=== PATIENT | male | born 1965 | race Caucasian/White ===

== ENCOUNTER 2017-04-09 20:59 | Inpatient (IN) | payer MEDICAID ==
[~2017-04-09] VITALS: Ht 188 cm; Wt 101.8 kg
[~2017-04-09 20:59] MED LIST: CYCL-1 PO; GABA-532 PO; HYDR-565 PO; IBUP200C74 PO; LISI10TA4 PO; NAPR-1154 PO; OMEP40CA37 PO
[2017-04-09 22:15] LABS: BASOPHILS # (AUTO) 0.1 X10'3 (0-0.2); BASOPHILS % (AUTO) 0.2 % (0-1); EOSINOPHILS % (AUTO) 0.2 % (0-6); HEMATOCRIT 37.8 % (42.0-52.0); HEMOGLOBIN 12.8 g/dl (14.0-17.9); LYMPHOCYTES # (AUTO) 0.6 X10'3 (1.1-4.8); LYMPHOCYTES % (AUTO) 2.6 % (21-51); MEAN CORPUSCULAR HGB CONC 33.9 % (33.0-36.5); MEAN CORPUSCULAR VOLUME 91.5 FL (78-98); MEAN PLATELET VOLUME 7.1 FL (7.4-10.4); MONOCYTES # (AUTO) 1.1 X10'3 (0-0.9); MONOCYTES % (AUTO) 4.7 % (2-12); NEUTROPHILS # (AUTO) 22.1 X10'3 (1.8-7.7); NEUTROPHILS % (AUTO) 92.3 % (42-75); PLATELET COUNT 420 X10'3 (140-440); RED BLOOD COUNT 4.14 X10'6 (4.70-6.10); RED CELL DISTRIBUTION WIDTH 13.6 % (11.5-14.5); WHITE BLOOD COUNT 23.9 X10'3 (4.5-11.0)
[2017-04-09 22:28] LABS: ANION GAP 14 (8-16); BILIRUBIN,TOTAL 0.8 MG/DL (0.1-1.0); BLOOD UREA NITROGEN 47 MG/DL (7-18); BUN/CREATININE RATIO 12.3 (5.4-32.0); CALCIUM 8.6 MG/DL (8.5-10.1); CHLORIDE 95 MMOL/L (99-107); CREATININE 3.83 MG/DL (0.60-1.10); GLUCOSE 165 MG/DL (70-104); POTASSIUM 4.5 MMOL/L (3.5-5.1); SODIUM 134 MMOL/L (135-145); TOTAL CARBON DIOXIDE 25.3 MMOL/L (24-32); eGFR 17 ML/MIN
[2017-04-09 22:29] LABS: ALANINE AMINOTRANSFERASE 34 U/L (12-78); ALBUMIN 2.2 G/DL (3.4-5.0); ALBUMIN/GLOBULIN RATIO 0.4 (1.1-1.5); ALKALINE PHOSPHATASE 140 IU/L (46-116); ASPARTATE AMINO TRANSFERASE 26 U/L (10-37); TOTAL PROTEIN 7.9 G/DL (6.4-8.2)
[2017-04-09 22:47] LABS: PROTHROMBIN TIME 10.6 SECONDS (9.0-12.0)
[2017-04-09 23:15] LABS: PLATELET ESTIMATE NORMAL; TOTAL CELLS COUNTED 100
[2017-04-09 23:31] LABS: CLARITY,URINE TURBID (Clear); COLOR,URINE YELLOW (Yellow); GLUCOSE, URINE NEGATIVE (Neg); KETONES,URINE TRACE mg/dl (Neg); LEUKOCYTE ESTERASE ,URINE LARGE (Neg); OCCULT BLOOD,URINE LARGE (Neg); PH,URINE 5.5 (4.8-8.0); PROTEIN,URINE >=300 mg/dl (Neg)
[2017-04-09 23:32] LABS: UA COLLECTION TYPE CLN CATCH MIDSTREAM
[2017-04-09 23:35] LABS: NITRITES, URINE NEGATIVE (Neg)
[2017-04-09 23:50] LABS: BACTERIA,URINE 4+ /HPF (Neg); MUCUS STRANDS NONE SEEN /LPF (Neg); SQUAMOUS EPITHELIAL CELL,UR NONE SEEN /LPF (FEW); WBC,URINE TNTC /HPF (0-4)
[2017-04-10] VITALS (22 sets, daily range): BP systolic 84–163; BP diastolic 31–105
[2017-04-10] MEDS ORDERED: normal saline 1000ML IV soln IV ONE (01:10)
[2017-04-10] MEDS ORDERED: CefTRIAXone 2gm/D5W 50ml ADVTG 50 ML IV ONE (01:10)
[2017-04-10] MEDS ORDERED: potassium 10mEq/100ml NS w/LIDOcaine (10mg/bag) IV SCH (01:20)
[2017-04-10] MEDS ORDERED: metoclopramide 5 mg/ml inj IV ONE (01:20)
[2017-04-10] MEDS ORDERED: diphenhydrAMINE 50 mg/ml inj IV ONE (01:20)
[2017-04-10] MEDS ORDERED: normal saline 1000ML IV soln IVB ONE ×3 (01:20→04:25)
[2017-04-10] MEDS ORDERED: LORazepam 2 mg/ml vial IV ONE (01:20)
[2017-04-10 01:30] LABS: PARTIAL THROMBOPLASTIN TIME 37 SECONDS (22-32)
[2017-04-10 01:45] LABS: URINE AMPHETAMINE SCREEN POSITIVE (Neg); URINE BARBITUATE SCREEN NEGATIVE (Neg); URINE BENZODIAZEPINES SCREEN NEGATIVE (Neg); URINE CANNABINOID SCREEN NEGATIVE (Neg); URINE COCAINE SCREEN NEGATIVE (Neg); URINE METHADONE SCREEN NEGATIVE (Neg); URINE OPIATE SCREEN POSITIVE (Neg); URINE PHENCYCLIDINE SCREEN NEGATIVE (Neg)
[2017-04-10] MEDS ORDERED: mag hydrox/Alum hydrox/simeth 30ml oral suspension PO PRN (04:35)
[2017-04-10] MEDS ORDERED: acetaminophen 325mg tablet PO PRN (04:35)
[2017-04-10] MEDS ORDERED: ondansetron/PF 4mg/2ml inj IV PRN ×2 (04:35→05:20)
[2017-04-10] MEDS ORDERED: magnesium hydroxide 30ml (MOM) UD suspension PO PRN (04:35)
[2017-04-10] MEDS ORDERED: ringers solution, lacted 1,000 ML IV SCH (05:18)
[2017-04-10] MEDS ORDERED: morphine sulfate 8 MG/ML SYRINGE IV PRN ×2 (05:20)
[2017-04-10] MEDS ORDERED: enalaprilat dihydrate 2.5mg/2ml vial IV PRN (05:20)
[2017-04-10] MEDS ORDERED: hydrALAZINE 20mg/ml inj. IV PRN (05:20)
[2017-04-10] MEDS ORDERED: fentaNYL/PF 50MCG/1 ML 2ML syringe IV PRN ×2 (05:20)
[2017-04-10 05:23] LABS: MAGNESIUM 2.3 MG/DL (1.5-2.4); TROPONIN I < 0.04 NG/ML (0.0-0.05)
[2017-04-10] MEDS ORDERED: midazolam 2 mg/2 ml injection ONE ×2 (05:39→06:05)
[2017-04-10] MEDS ORDERED: fentaNYL/PF 50MCG/1 ML 2ML syringe ONE ×3 (05:39→06:08)
[2017-04-10] MEDS ORDERED: propofol inj 20 ML IV ONE (05:40)
[2017-04-10] MEDS ORDERED: LIDOcaine 2% (20mg/ml) 5ml vial ONE (05:40)
[2017-04-10] MEDS ORDERED: dexamethasone sod phosphate 4mg/ml inj. ONE (05:48)
[2017-04-10] MEDS ORDERED: sevoflurane 250ml liquid IH ONE (05:48)
[2017-04-10 07:18] LABS: CLARITY,URINE SLIGHTLY CLOUDY (Clear); GLUCOSE, URINE NEGATIVE (Neg); KETONES,URINE NEGATIVE (Neg); LEUKOCYTE ESTERASE ,URINE SMALL (Neg); NITRITES, URINE NEGATIVE (Neg); OCCULT BLOOD,URINE LARGE (Neg); PH,URINE 5.5 (4.8-8.0); PROTEIN,URINE TRACE mg/dl (Neg); UROBILINOGEN,URINE 0.2 E.U/dL (0.2-1.0)
[2017-04-10 07:19] LABS: UA COLLECTION TYPE FOLEY CATH
[2017-04-10 07:20] LABS: COLOR,URINE Pink (Yellow)
[2017-04-10 07:30] LABS: BACTERIA,URINE NONE SEEN /HPF (Neg); MUCUS STRANDS FEW /LPF (Neg); RBC,URINE TNTC /HPF (0-2); SQUAMOUS EPITHELIAL CELL,UR FEW /LPF (FEW)
[2017-04-10 07:31] LABS: TRANSITIONAL EPI CELLS,URINE FEW /HPF; WBC CLUMPS,URINE FEW /HPF (NEGATIVE)
[2017-04-10] MEDS: normal saline 1000ml 1,000 ML IV SCH ×2 (09:00→15:42)
[2017-04-10] MEDS: morphine sulfate 8 MG/ML SYRINGE IV PRN ×2 (10:39→15:46)
[2017-04-10] MEDS ORDERED: vancomycin/NS 1 GM ADD-VANTAGE 250 ML IV ONE (18:05)
[2017-04-10] MEDS ORDERED: CefTRIAXone 2gm/D5W 50ml ADVTG 50 ML IV SCH (21:00)
[2017-04-11] MEDS ORDERED: guaiFENesin/DM oral syrup 5 ML CUP PO PRN (00:55)
[2017-04-11] MEDS ORDERED: HYDROcodone/acetaminophen 5mg/325mg tablet PO PRN (00:55)
[2017-04-11] MEDS: HYDROcodone/acetaminophen 10/325mg tab PO PRN ×3 (01:07→11:12)
[2017-04-11] MEDS: normal saline 1000ml 1,000 ML IV SCH ×3 (01:11→19:30)
[2017-04-11 03:00] VITALS: BP 148/101
[2017-04-11 05:26] LABS: BASOPHILS % (AUTO) 0 % (0-1); EOSINOPHILS % (AUTO) 0 % (0-6); HEMATOCRIT 32.3 % (42.0-52.0); LYMPHOCYTES # (AUTO) 0.8 X10'3 (1.1-4.8); LYMPHOCYTES % (AUTO) 3.1 % (21-51); MEAN CORPUSCULAR VOLUME 91.1 FL (78-98); MEAN PLATELET VOLUME 7.9 FL (7.4-10.4); MONOCYTES % (AUTO) 4.2 % (2-12); NEUTROPHILS # (AUTO) 22.6 X10'3 (1.8-7.7); NEUTROPHILS % (AUTO) 92.7 % (42-75); PLATELET COUNT 372 X10'3 (140-440); RED BLOOD COUNT 3.54 X10'6 (4.70-6.10); WHITE BLOOD COUNT 24.4 X10'3 (4.5-11.0)
[2017-04-11 05:28] LABS: ALBUMIN 1.5 G/DL (3.4-5.0); ANION GAP 8 (8-16); BLOOD UREA NITROGEN 48 MG/DL (7-18); BUN/CREATININE RATIO 18.5 (5.4-32.0); CALCIUM 7.9 MG/DL (8.5-10.1); CHLORIDE 104 MMOL/L (99-107); GLUCOSE 141 MG/DL (70-104); POTASSIUM 4.2 MMOL/L (3.5-5.1); SODIUM 136 MMOL/L (135-145); TOTAL CARBON DIOXIDE 24.5 MMOL/L (24-32); eGFR 26 ML/MIN
[2017-04-11 06:00] VITALS: BP 144/94
[2017-04-11] MEDS ORDERED: vancomycin/NS 1 GM ADD-VANTAGE 250 ML IV PRN (07:10)
[2017-04-11 11:00] VITALS: BP 161/93
[2017-04-11] MEDS: nicotine 14mg patch - 24hr TD SCH (11:11)
[2017-04-11] MEDS ORDERED: CYCL-1 PO (13:33)
[2017-04-11] MEDS: morphine sulfate 8 MG/ML SYRINGE IV PRN ×3 (14:12→22:31)
[2017-04-11 16:30] VITALS: BP 169/118
[2017-04-11] MEDS: lactobacillus rhamnosus 10,000 MMU CELLS/CAPSULE PO SCH (17:53)
[2017-04-11 19:00] VITALS: BP 188/113
[2017-04-11] MEDS: hydrALAZINE 20mg/ml inj. IV PRN (19:14)
[2017-04-11] MEDS ORDERED: haloperidol lactate 5mg/ml inj IM STA (21:05)
[2017-04-11 23:00] VITALS: BP 193/115
[2017-04-12] VITALS (7 sets, daily range): BP systolic 131–193; BP diastolic 81–117
[2017-04-12] MEDS: hydrALAZINE 20mg/ml inj. IV PRN ×2 (01:36→17:16)
[2017-04-12] MEDS: morphine sulfate 8 MG/ML SYRINGE IV PRN ×6 (01:36→21:56)
[2017-04-12] MEDS: HYDROcodone/acetaminophen 10/325mg tab PO PRN ×4 (04:06→17:16)
[2017-04-12] MEDS: normal saline 1000ml 1,000 ML IV SCH ×2 (04:43→17:16)
[2017-04-12 05:23] LABS: BASOPHILS % (AUTO) 0 % (0-1); EOSINOPHILS # (AUTO) 0.1 X10'3 (0-0.9); EOSINOPHILS % (AUTO) 0.4 % (0-6); HEMATOCRIT 37.2 % (42.0-52.0); HEMOGLOBIN 12.5 g/dl (14.0-17.9); LYMPHOCYTES # (AUTO) 1.4 X10'3 (1.1-4.8); LYMPHOCYTES % (AUTO) 7.2 % (21-51); MEAN CORPUSCULAR HEMOGLOBIN 30.5 PG (27.0-31.0); MEAN CORPUSCULAR HGB CONC 33.7 % (33.0-36.5); MEAN CORPUSCULAR VOLUME 90.4 FL (78-98); MEAN PLATELET VOLUME 7.8 FL (7.4-10.4); MONOCYTES # (AUTO) 0.4 X10'3 (0-0.9); MONOCYTES % (AUTO) 2.1 % (2-12); NEUTROPHILS # (AUTO) 17.2 X10'3 (1.8-7.7); NEUTROPHILS % (AUTO) 90.3 % (42-75); PLATELET COUNT 429 X10'3 (140-440); RED BLOOD COUNT 4.12 X10'6 (4.70-6.10)
[2017-04-12 05:44] LABS: GLUCOSE 134 MG/DL (70-104); POTASSIUM 3.7 MMOL/L (3.5-5.1); SODIUM 134 MMOL/L (135-145)
[2017-04-12 05:45] LABS: ALBUMIN 1.8 G/DL (3.4-5.0); ANION GAP 12 (8-16); BLOOD UREA NITROGEN 45 MG/DL (7-18); BUN/CREATININE RATIO 20.2 (5.4-32.0); CALCIUM 8.5 MG/DL (8.5-10.1); CHLORIDE 99 MMOL/L (99-107); CREATININE 2.23 MG/DL (0.60-1.10); TOTAL CARBON DIOXIDE 22.7 MMOL/L (24-32); eGFR 31 ML/MIN
[2017-04-12 07:48] LABS: ANISOCYTOSIS 1+; PLATELET ESTIMATE NORMAL; TOTAL CELLS COUNTED 100
[2017-04-12] MEDS: lactobacillus rhamnosus 10,000 MMU CELLS/CAPSULE PO SCH ×2 (08:38→17:16)
[2017-04-12] MEDS: nicotine 14mg patch - 24hr TD SCH (08:39)
[2017-04-12] MEDS: ibuprofen 200mg tablet PO PRN (17:15)
[2017-04-13] MEDS: morphine sulfate 8 MG/ML SYRINGE IV PRN ×5 (01:03→21:54)
[2017-04-13] MEDS: HYDROcodone/acetaminophen 10/325mg tab PO PRN ×2 (01:04→20:12)
[2017-04-13] MEDS: normal saline 1000ml 1,000 ML IV SCH ×3 (01:07→22:35)
[2017-04-13 03:00] VITALS: BP 146/93
[2017-04-13] MEDS: ibuprofen 200mg tablet PO PRN (03:01)
[2017-04-13 05:49] LABS: BASOPHILS % (AUTO) 0 % (0-1); EOSINOPHILS # (AUTO) 0.3 X10'3 (0-0.9); EOSINOPHILS % (AUTO) 1.7 % (0-6); HEMATOCRIT 33.5 % (42.0-52.0); HEMOGLOBIN 11.4 g/dl (14.0-17.9); LYMPHOCYTES # (AUTO) 1.3 X10'3 (1.1-4.8); LYMPHOCYTES % (AUTO) 6.8 % (21-51); MEAN CORPUSCULAR HEMOGLOBIN 30.6 PG (27.0-31.0); MEAN PLATELET VOLUME 7.6 FL (7.4-10.4); MONOCYTES # (AUTO) 0.5 X10'3 (0-0.9); MONOCYTES % (AUTO) 2.6 % (2-12); NEUTROPHILS # (AUTO) 16.5 X10'3 (1.8-7.7); NEUTROPHILS % (AUTO) 88.9 % (42-75); PLATELET COUNT 388 X10'3 (140-440); RED BLOOD COUNT 3.72 X10'6 (4.70-6.10); RED CELL DISTRIBUTION WIDTH 14.3 % (11.5-14.5); WHITE BLOOD COUNT 18.6 X10'3 (4.5-11.0)
[2017-04-13 06:18] LABS: ALBUMIN 1.6 G/DL (3.4-5.0); ANION GAP 11 (8-16); BLOOD UREA NITROGEN 33 MG/DL (7-18); BUN/CREATININE RATIO 17.6 (5.4-32.0); CALCIUM 8.2 MG/DL (8.5-10.1); CHLORIDE 101 MMOL/L (99-107); CREATININE 1.88 MG/DL (0.60-1.10); GLUCOSE 121 MG/DL (70-104); POTASSIUM 3.9 MMOL/L (3.5-5.1); SODIUM 136 MMOL/L (135-145); TOTAL CARBON DIOXIDE 24.5 MMOL/L (24-32); eGFR 38 ML/MIN
[2017-04-13 07:55] LABS: PLATELET ESTIMATE NORMAL; POLYCHROMASIA 1+; TOTAL CELLS COUNTED 100
[2017-04-13 07:56] LABS: TOXIC GRANULATION 2+
[2017-04-13] MEDS: nicotine 14mg patch - 24hr TD SCH (08:00)
[2017-04-13 11:00] VITALS: BP 183/102
[2017-04-13] MEDS: lactobacillus rhamnosus 10,000 MMU CELLS/CAPSULE PO SCH ×2 (11:23→17:01)
[2017-04-13] MEDS: acetaminophen 325mg tablet PO PRN (15:42)
[2017-04-13 18:00] VITALS: BP 162/91
[2017-04-13 22:00] VITALS: BP 166/100
[2017-04-14 02:00] VITALS: BP 150/120
[2017-04-14] MEDS: morphine sulfate 8 MG/ML SYRINGE IV PRN ×6 (02:27→23:13)
[2017-04-14] MEDS: acetaminophen 325mg tablet PO PRN (02:28)
[2017-04-14 04:40] LABS: BASOPHILS % (AUTO) 0 % (0-1); EOSINOPHILS # (AUTO) 0.5 X10'3 (0-0.9); EOSINOPHILS % (AUTO) 1.9 % (0-6); HEMATOCRIT 34.5 % (42.0-52.0); HEMOGLOBIN 11.8 g/dl (14.0-17.9); LYMPHOCYTES # (AUTO) 0.9 X10'3 (1.1-4.8); LYMPHOCYTES % (AUTO) 3.5 % (21-51); MEAN CORPUSCULAR HEMOGLOBIN 30.7 PG (27.0-31.0); MEAN CORPUSCULAR HGB CONC 34.1 % (33.0-36.5); MEAN PLATELET VOLUME 7.2 FL (7.4-10.4); MONOCYTES # (AUTO) 0.9 X10'3 (0-0.9); MONOCYTES % (AUTO) 3.7 % (2-12); NEUTROPHILS % (AUTO) 90.9 % (42-75); PLATELET COUNT 435 X10'3 (140-440); RED BLOOD COUNT 3.83 X10'6 (4.70-6.10); RED CELL DISTRIBUTION WIDTH 14.4 % (11.5-14.5)
[2017-04-14 04:54] LABS: WHITE BLOOD COUNT 25.3 X10'3 (4.5-11.0)
[2017-04-14 04:57] LABS: ALBUMIN 1.6 G/DL (3.4-5.0); ANION GAP 9 (8-16); BLOOD UREA NITROGEN 24 MG/DL (7-18); BUN/CREATININE RATIO 13.8 (5.4-32.0); CALCIUM 8.7 MG/DL (8.5-10.1); CHLORIDE 98 MMOL/L (99-107); CREATININE 1.74 MG/DL (0.60-1.10); GLUCOSE 137 MG/DL (70-104); SODIUM 132 MMOL/L (135-145); TOTAL CARBON DIOXIDE 25.1 MMOL/L (24-32); eGFR 42 ML/MIN
[2017-04-14 07:03] VITALS: BP 152/92
[2017-04-14 07:14] LABS: BASOPHILS % (MANUAL) 1 % (0-1); LYMPHOCYTES % (MANUAL) 7 % (21-51); MONOCYTES % (MANUAL) 1 % (2-12); NEUTROPHILS % (MANUAL) 90 % (42-75); PLATELET ESTIMATE NORMAL; TOTAL CELLS COUNTED 100; TOXIC GRANULATION 2+
[2017-04-14] MEDS: lactobacillus rhamnosus 10,000 MMU CELLS/CAPSULE PO SCH ×2 (08:27→17:39)
[2017-04-14] MEDS: nicotine 14mg patch - 24hr TD SCH (08:28)
[2017-04-14] MEDS: normal saline 1000ml 1,000 ML IV SCH ×2 (08:35→17:39)
[2017-04-14] MEDS: metroNIDAZOLE-Flagyl 500mg/NS 100 ML IV SCH ×3 (11:15→23:13)
[2017-04-14] MEDS: diatr meglu/diatrizoate 30ml oral sol.-(3 dose) bottle PO SCH ×4 (11:20→17:39)
[2017-04-14 12:03] VITALS: BP 151/97
[2017-04-14] MEDS: CefTRIAXone 2gm/D5W 50ml ADVTG 50 ML IV SCH (12:18)
[2017-04-14 17:28] VITALS: BP 165/98
[2017-04-14 19:00] VITALS: BP 180/101
[2017-04-14] MEDS ORDERED: VANCOMYCIN LEVEL IV ONE (20:30)
[2017-04-14] MEDS: HYDROcodone/acetaminophen 10/325mg tab PO PRN (21:37)
[2017-04-14] MEDS: hydrALAZINE 20mg/ml inj. IV PRN (21:38)
[2017-04-14 23:00] VITALS: BP 167/94
[2017-04-15] VITALS (13 sets, daily range): BP systolic 115–180; BP diastolic 62–98
[2017-04-15] MEDS: morphine sulfate 8 MG/ML SYRINGE IV PRN ×3 (02:30→09:39)
[2017-04-15] MEDS: normal saline 1000ml 1,000 ML IV SCH ×2 (02:30→14:32)
[2017-04-15] MEDS: cloNIDine 0.1 mg tablet PO SCH ×3 (02:53→16:00)
[2017-04-15 05:24] LABS: BASOPHILS % (AUTO) 0.1 % (0-1); EOSINOPHILS # (AUTO) 0.5 X10'3 (0-0.9); EOSINOPHILS % (AUTO) 2.2 % (0-6); HEMATOCRIT 34.6 % (42.0-52.0); HEMOGLOBIN 12.1 g/dl (14.0-17.9); MEAN CORPUSCULAR HEMOGLOBIN 30.8 PG (27.0-31.0); MEAN CORPUSCULAR HGB CONC 34.8 % (33.0-36.5); MEAN CORPUSCULAR VOLUME 88.6 FL (78-98); MEAN PLATELET VOLUME 7.2 FL (7.4-10.4); MONOCYTES # (AUTO) 1.1 X10'3 (0-0.9); MONOCYTES % (AUTO) 4.3 % (2-12); NEUTROPHILS # (AUTO) 22.6 X10'3 (1.8-7.7); NEUTROPHILS % (AUTO) 89.4 % (42-75); PLATELET COUNT 528 X10'3 (140-440); RED BLOOD COUNT 3.91 X10'6 (4.70-6.10); RED CELL DISTRIBUTION WIDTH 14.7 % (11.5-14.5)
[2017-04-15 05:39] LABS: ALBUMIN 1.5 G/DL (3.4-5.0); ANION GAP 10 (8-16); BLOOD UREA NITROGEN 24 MG/DL (7-18); BUN/CREATININE RATIO 13.3 (5.4-32.0); CALCIUM 8.3 MG/DL (8.5-10.1); CHLORIDE 99 MMOL/L (99-107); GLUCOSE 140 MG/DL (70-104); POTASSIUM 4.2 MMOL/L (3.5-5.1); SODIUM 133 MMOL/L (135-145); TOTAL CARBON DIOXIDE 24.4 MMOL/L (24-32); eGFR 40 ML/MIN
[2017-04-15 05:45] LABS: WHITE BLOOD COUNT 25.2 X10'3 (4.5-11.0)
[2017-04-15 06:33] LABS: BANDS% (MANUAL) 6 % (0-10); EOSINOPHILS % (MANUAL) 1 % (0-6); MONOCYTES % (MANUAL) 1 % (2-12); MYELOCYTES % (MANUAL) 1 % (0-0); NEUTROPHILS % (MANUAL) 91 % (42-75); PLATELET ESTIMATE INCREASED; TOTAL CELLS COUNTED 100
[2017-04-15 06:34] LABS: TOXIC GRANULATION 2+
[2017-04-15] MEDS: lactobacillus rhamnosus 10,000 MMU CELLS/CAPSULE PO SCH ×2 (07:10→16:10)
[2017-04-15] MEDS: metroNIDAZOLE-Flagyl 500mg/NS 100 ML IV SCH (07:11)
[2017-04-15] MEDS: nicotine 14mg patch - 24hr TD SCH (07:11)
[2017-04-15] MEDS: HYDROcodone/acetaminophen 10/325mg tab PO PRN ×4 (07:11→22:14)
[2017-04-15] MEDS: CefTRIAXone 2gm/D5W 50ml ADVTG 50 ML IV SCH (07:11)
[2017-04-15] MEDS: linezolid 600mg tablet PO SCH ×2 (09:39→19:57)
[2017-04-15] MEDS ORDERED: MIDAZolam 5mg/ml 2ml vial IV ONE (15:25)
[2017-04-15] MEDS ORDERED: fentaNYL/PF 50MCG/1 ML 2ML syringe IV ONE (15:25)
[2017-04-15] MEDS: traMADol 50MG tablet PO PRN (19:58)
[2017-04-15] MEDS: hydrALAZINE 20mg/ml inj. IV PRN (22:14)
[2017-04-16] VITALS (7 sets, daily range): BP systolic 134–161; BP diastolic 72–88
[2017-04-16] MEDS: traMADol 50MG tablet PO PRN ×5 (00:03→21:57)
[2017-04-16] MEDS: cloNIDine 0.1 mg tablet PO SCH ×4 (00:03→23:48)
[2017-04-16] MEDS: normal saline 1000ml 1,000 ML IV SCH ×4 (00:35→23:54)
[2017-04-16] MEDS: HYDROcodone/acetaminophen 10/325mg tab PO PRN ×5 (02:44→23:49)
[2017-04-16] MEDS: linezolid 600mg tablet PO SCH ×2 (09:08→19:33)
[2017-04-16] MEDS: lactobacillus rhamnosus 10,000 MMU CELLS/CAPSULE PO SCH ×2 (09:08→17:36)
[2017-04-16] MEDS: nicotine 14mg patch - 24hr TD SCH (09:12)
[2017-04-16 11:09] LABS: BASOPHILS % (AUTO) 0.1 % (0-1); EOSINOPHILS # (AUTO) 0.3 X10'3 (0-0.9); EOSINOPHILS % (AUTO) 1.3 % (0-6); HEMATOCRIT 31.7 % (42.0-52.0); HEMOGLOBIN 10.7 g/dl (14.0-17.9); LYMPHOCYTES # (AUTO) 1.2 X10'3 (1.1-4.8); LYMPHOCYTES % (AUTO) 5.1 % (21-51); MEAN CORPUSCULAR HEMOGLOBIN 30.3 PG (27.0-31.0); MEAN CORPUSCULAR HGB CONC 33.7 % (33.0-36.5); MEAN CORPUSCULAR VOLUME 89.9 FL (78-98); MEAN PLATELET VOLUME 7.3 FL (7.4-10.4); MONOCYTES % (AUTO) 4.2 % (2-12); NEUTROPHILS # (AUTO) 21.3 X10'3 (1.8-7.7); NEUTROPHILS % (AUTO) 89.3 % (42-75); PLATELET COUNT 627 X10'3 (140-440); RED BLOOD COUNT 3.53 X10'6 (4.70-6.10); RED CELL DISTRIBUTION WIDTH 14.8 % (11.5-14.5); WHITE BLOOD COUNT 23.9 X10'3 (4.5-11.0)
[2017-04-16 11:21] LABS: ALBUMIN 1.4 G/DL (3.4-5.0); ANION GAP 8 (8-16); BLOOD UREA NITROGEN 25 MG/DL (7-18); BUN/CREATININE RATIO 15.2 (5.4-32.0); CALCIUM 8.1 MG/DL (8.5-10.1); CHLORIDE 100 MMOL/L (99-107); CREATININE 1.65 MG/DL (0.60-1.10); GLUCOSE 115 MG/DL (70-104); POTASSIUM 4.1 MMOL/L (3.5-5.1); SODIUM 134 MMOL/L (135-145); TOTAL CARBON DIOXIDE 26.2 MMOL/L (24-32); eGFR 44 ML/MIN
[2017-04-16 11:27] LABS: TOTAL CELLS COUNTED 100
[2017-04-16 11:28] LABS: PLATELET ESTIMATE INCREASED; TOXIC GRANULATION 2+
[2017-04-16] MEDS ORDERED: VANCOMYCIN LEVEL IV NR (20:30)
[2017-04-17] MEDS: traMADol 50MG tablet PO PRN ×4 (02:27→20:37)
[2017-04-17 03:00] VITALS: BP 146/79
[2017-04-17] MEDS: HYDROcodone/acetaminophen 10/325mg tab PO PRN ×4 (04:03→22:25)
[2017-04-17 06:00] VITALS: BP 134/80
[2017-04-17 06:19] LABS: VANCOMYCIN,TROUGH 17.4 UG/ML (6.0-14.0)
[2017-04-17 07:28] LABS: ALBUMIN 1.5 G/DL (3.4-5.0); ANION GAP 11 (8-16); BLOOD UREA NITROGEN 22 MG/DL (7-18); BUN/CREATININE RATIO 12.8 (5.4-32.0); CALCIUM 8.5 MG/DL (8.5-10.1); CHLORIDE 99 MMOL/L (99-107); CREATININE 1.72 MG/DL (0.60-1.10); GLUCOSE 124 MG/DL (70-104); SODIUM 133 MMOL/L (135-145); TOTAL CARBON DIOXIDE 23.5 MMOL/L (24-32); eGFR 42 ML/MIN
[2017-04-17] MEDS: linezolid 600mg tablet PO SCH ×2 (09:18→20:37)
[2017-04-17] MEDS: lactobacillus rhamnosus 10,000 MMU CELLS/CAPSULE PO SCH ×2 (09:19→17:56)
[2017-04-17] MEDS: cloNIDine 0.1 mg tablet PO SCH ×2 (09:19→15:48)
[2017-04-17] MEDS: nicotine 14mg patch - 24hr TD SCH (09:19)
[2017-04-17] MEDS: vancomycin inj 1,250 MG in normal saline 250ml IV soln 250 ML IV SCH ×2 (09:20→20:38)
[2017-04-17] MEDS: normal saline 1000ml 1,000 ML IV SCH (09:28)
[2017-04-17 09:53] LABS: BASOPHILS % (AUTO) 0 % (0-1); EOSINOPHILS # (AUTO) 0.7 X10'3 (0-0.9); EOSINOPHILS % (AUTO) 3.6 % (0-6); HEMATOCRIT 32.8 % (42.0-52.0); HEMOGLOBIN 11.1 g/dl (14.0-17.9); LYMPHOCYTES # (AUTO) 1.2 X10'3 (1.1-4.8); LYMPHOCYTES % (AUTO) 6.4 % (21-51); MEAN CORPUSCULAR HEMOGLOBIN 30.8 PG (27.0-31.0); MEAN CORPUSCULAR HGB CONC 33.8 % (33.0-36.5); MEAN CORPUSCULAR VOLUME 91.3 FL (78-98); MEAN PLATELET VOLUME 7.2 FL (7.4-10.4); MONOCYTES # (AUTO) 0.8 X10'3 (0-0.9); MONOCYTES % (AUTO) 4.2 % (2-12); NEUTROPHILS # (AUTO) 16.3 X10'3 (1.8-7.7); NEUTROPHILS % (AUTO) 85.8 % (42-75); PLATELET COUNT 696 X10'3 (140-440); RED CELL DISTRIBUTION WIDTH 15.1 % (11.5-14.5)
[2017-04-17 10:20] LABS: PLATELET ESTIMATE INCREASED; TOTAL CELLS COUNTED 100; TOXIC GRANULATION 2+
[2017-04-17 11:00] VITALS: BP 137/78
[2017-04-17 12:50] VITALS: BP 146/79
[2017-04-17 18:00] VITALS: BP 146/74
[2017-04-17 22:00] VITALS: BP 163/90
[2017-04-18] MEDS: cloNIDine 0.1 mg tablet PO SCH ×3 (00:43→16:35)
[2017-04-18] MEDS: traMADol 50MG tablet PO PRN ×4 (00:43→20:55)
[2017-04-18] MEDS: normal saline 1000ml 1,000 ML IV SCH (00:44)
[2017-04-18] MEDS: HYDROcodone/acetaminophen 10/325mg tab PO PRN ×2 (02:35→08:42)
[2017-04-18 05:00] VITALS: BP 146/73
[2017-04-18 06:41] LABS: BASOPHILS % (AUTO) 0.1 % (0-1); EOSINOPHILS # (AUTO) 0.6 X10'3 (0-0.9); EOSINOPHILS % (AUTO) 3.7 % (0-6); HEMATOCRIT 29.8 % (42.0-52.0); HEMOGLOBIN 10.2 g/dl (14.0-17.9); LYMPHOCYTES # (AUTO) 1.5 X10'3 (1.1-4.8); LYMPHOCYTES % (AUTO) 8.8 % (21-51); MEAN CORPUSCULAR HEMOGLOBIN 30.7 PG (27.0-31.0); MEAN CORPUSCULAR HGB CONC 34.3 % (33.0-36.5); MEAN CORPUSCULAR VOLUME 89.5 FL (78-98); MEAN PLATELET VOLUME 6.8 FL (7.4-10.4); MONOCYTES # (AUTO) 1.1 X10'3 (0-0.9); MONOCYTES % (AUTO) 6.4 % (2-12); NEUTROPHILS # (AUTO) 13.9 X10'3 (1.8-7.7); PLATELET COUNT 875 X10'3 (140-440); RED BLOOD COUNT 3.33 X10'6 (4.70-6.10); RED CELL DISTRIBUTION WIDTH 14.8 % (11.5-14.5); WHITE BLOOD COUNT 17.2 X10'3 (4.5-11.0)
[2017-04-18 06:50] LABS: ALBUMIN 1.5 G/DL (3.4-5.0); ANION GAP 8 (8-16); BLOOD UREA NITROGEN 22 MG/DL (7-18); BUN/CREATININE RATIO 13.6 (5.4-32.0); CALCIUM 8.3 MG/DL (8.5-10.1); CHLORIDE 101 MMOL/L (99-107); CREATININE 1.62 MG/DL (0.60-1.10); GLUCOSE 116 MG/DL (70-104); POTASSIUM 4.2 MMOL/L (3.5-5.1); SODIUM 136 MMOL/L (135-145); eGFR 45 ML/MIN
[2017-04-18] MEDS: lactobacillus rhamnosus 10,000 MMU CELLS/CAPSULE PO SCH ×2 (08:42→16:35)
[2017-04-18] MEDS: linezolid 600mg tablet PO SCH ×2 (08:42→20:55)
[2017-04-18] MEDS: nicotine 14mg patch - 24hr TD SCH (08:43)
[2017-04-18] MEDS: vancomycin inj 1,250 MG in normal saline 250ml IV soln 250 ML IV SCH ×2 (09:31→21:00)
[2017-04-18 10:00] VITALS: BP 159/80
[2017-04-18] MEDS: HYDROcodone/acetaminophen 5mg/325mg tablet PO PRN ×3 (13:04→23:02)
[2017-04-18 18:00] VITALS: BP 159/89
[2017-04-18] MEDS ORDERED: VANCOMYCIN LEVEL IV NR (20:30)
[2017-04-18] MEDS: enoxaparin 40mg/0.4ml syringe SUBCUT SCH (21:30)
[2017-04-18] MEDS: aspirin 81mg tablet.DR PO SCH (21:31)
[2017-04-18 22:00] VITALS: BP 140/84
[2017-04-19] MEDS: cloNIDine 0.1 mg tablet PO SCH ×3 (00:58→15:47)
[2017-04-19] MEDS: traMADol 50MG tablet PO PRN ×5 (00:59→21:00)
[2017-04-19] MEDS: HYDROcodone/acetaminophen 5mg/325mg tablet PO PRN ×4 (02:35→17:08)
[2017-04-19 06:00] VITALS: BP 123/76
[2017-04-19 06:08] LABS: BASOPHILS # (AUTO) 0.1 X10'3 (0-0.2); BASOPHILS % (AUTO) 0.2 % (0-1); EOSINOPHILS # (AUTO) 0.9 X10'3 (0-0.9); EOSINOPHILS % (AUTO) 3.9 % (0-6); HEMATOCRIT 30.6 % (42.0-52.0); HEMOGLOBIN 10.5 g/dl (14.0-17.9); LYMPHOCYTES # (AUTO) 2.3 X10'3 (1.1-4.8); LYMPHOCYTES % (AUTO) 10.4 % (21-51); MEAN CORPUSCULAR HEMOGLOBIN 30.6 PG (27.0-31.0); MEAN CORPUSCULAR HGB CONC 34.4 % (33.0-36.5); MEAN PLATELET VOLUME 6.6 FL (7.4-10.4); MONOCYTES # (AUTO) 1.3 X10'3 (0-0.9); MONOCYTES % (AUTO) 5.8 % (2-12); NEUTROPHILS # (AUTO) 17.9 X10'3 (1.8-7.7); NEUTROPHILS % (AUTO) 79.7 % (42-75); RED BLOOD COUNT 3.44 X10'6 (4.70-6.10); RED CELL DISTRIBUTION WIDTH 14.3 % (11.5-14.5); WHITE BLOOD COUNT 22.4 X10'3 (4.5-11.0)
[2017-04-19 06:11] LABS: PLATELET COUNT 1038 X10'3 (140-440)
[2017-04-19 06:24] LABS: ALBUMIN 1.7 G/DL (3.4-5.0); ANION GAP 10 (8-16); BLOOD UREA NITROGEN 25 MG/DL (7-18); BUN/CREATININE RATIO 13.5 (5.4-32.0); CALCIUM 8.9 MG/DL (8.5-10.1); CHLORIDE 100 MMOL/L (99-107); CREATININE 1.85 MG/DL (0.60-1.10); GLUCOSE 110 MG/DL (70-104); POTASSIUM 4.3 MMOL/L (3.5-5.1); SODIUM 135 MMOL/L (135-145); TOTAL CARBON DIOXIDE 25.2 MMOL/L (24-32); eGFR 39 ML/MIN
[2017-04-19] MEDS: lactobacillus rhamnosus 10,000 MMU CELLS/CAPSULE PO SCH ×2 (07:52→17:08)
[2017-04-19] MEDS: lisinopril 10 MG tablet PO SCH (07:53)
[2017-04-19] MEDS: linezolid 600mg tablet PO SCH ×2 (07:54→21:05)
[2017-04-19] MEDS: nicotine 14mg patch - 24hr TD SCH (07:54)
[2017-04-19 07:59] VITALS: BP 130/73
[2017-04-19] MEDS: vancomycin/NS 1 GM ADD-VANTAGE 250 ML IV SCH ×2 (08:29→21:00)
[2017-04-19 10:00] VITALS: BP 120/72
[2017-04-19 18:00] VITALS: BP 130/88
[2017-04-19] MEDS: aspirin 81mg tablet.DR PO SCH (21:00)
[2017-04-19] MEDS: enoxaparin 40mg/0.4ml syringe SUBCUT SCH (21:01)
[2017-04-19 22:00] VITALS: BP 140/97
[2017-04-20] MEDS: cloNIDine 0.1 mg tablet PO SCH ×3 (00:29→16:43)
[2017-04-20] MEDS: HYDROcodone/acetaminophen 5mg/325mg tablet PO PRN ×5 (00:29→20:32)
[2017-04-20] MEDS: traMADol 50MG tablet PO PRN (02:31)
[2017-04-20 05:00] VITALS: BP 117/71
[2017-04-20 06:18] LABS: BASOPHILS # (AUTO) 0.1 X10'3 (0-0.2); BASOPHILS % (AUTO) 0.3 % (0-1); EOSINOPHILS # (AUTO) 0.7 X10'3 (0-0.9); EOSINOPHILS % (AUTO) 3.9 % (0-6); HEMATOCRIT 32.2 % (42.0-52.0); HEMOGLOBIN 10.9 g/dl (14.0-17.9); LYMPHOCYTES # (AUTO) 2.1 X10'3 (1.1-4.8); MEAN CORPUSCULAR HEMOGLOBIN 30.6 PG (27.0-31.0); MEAN CORPUSCULAR VOLUME 90.1 FL (78-98); MEAN PLATELET VOLUME 6.9 FL (7.4-10.4); MONOCYTES # (AUTO) 0.6 X10'3 (0-0.9); MONOCYTES % (AUTO) 3.6 % (2-12); NEUTROPHILS # (AUTO) 14.2 X10'3 (1.8-7.7); NEUTROPHILS % (AUTO) 80.2 % (42-75); RED BLOOD COUNT 3.57 X10'6 (4.70-6.10); RED CELL DISTRIBUTION WIDTH 14.4 % (11.5-14.5); WHITE BLOOD COUNT 17.7 X10'3 (4.5-11.0)
[2017-04-20 06:31] LABS: PLATELET COUNT 1175 X10'3 (140-440)
[2017-04-20 06:56] LABS: ALBUMIN 1.8 G/DL (3.4-5.0); ANION GAP 12 (8-16); BLOOD UREA NITROGEN 31 MG/DL (7-18); BUN/CREATININE RATIO 15.3 (5.4-32.0); CHLORIDE 100 MMOL/L (99-107); CREATININE 2.03 MG/DL (0.60-1.10); GLUCOSE 123 MG/DL (70-104); POTASSIUM 4.8 MMOL/L (3.5-5.1); SODIUM 135 MMOL/L (135-145); TOTAL CARBON DIOXIDE 22.8 MMOL/L (24-32); eGFR 35 ML/MIN
[2017-04-20] MEDS: lisinopril 10 MG tablet PO SCH (07:13)
[2017-04-20] MEDS: lactobacillus rhamnosus 10,000 MMU CELLS/CAPSULE PO SCH ×2 (07:24→16:43)
[2017-04-20] MEDS: aspirin 81mg tablet.DR PO SCH (07:25)
[2017-04-20] MEDS: linezolid 600mg tablet PO SCH ×2 (07:25→20:13)
[2017-04-20] MEDS: vancomycin/NS 1 GM ADD-VANTAGE 250 ML IV SCH ×2 (07:25→20:12)
[2017-04-20] MEDS: nicotine 14mg patch - 24hr TD SCH (07:25)
[2017-04-20] MEDS: enoxaparin 40mg/0.4ml syringe SUBCUT SCH (07:26)
[2017-04-20 10:00] VITALS: BP 127/72
[2017-04-20 18:00] VITALS: BP 134/77
[2017-04-20] MEDS ORDERED: VANCOMYCIN LEVEL IV ONE (19:30)
[2017-04-20] MEDS: normal saline 1000ml 1,000 ML IV SCH (20:12)
[2017-04-20 22:00] VITALS: BP 142/73
[2017-04-21] MEDS: HYDROcodone/acetaminophen 5mg/325mg tablet PO PRN ×6 (00:38→21:09)
[2017-04-21] MEDS: cloNIDine 0.1 mg tablet PO SCH ×4 (00:38→23:21)
[2017-04-21] MEDS: normal saline 1000ml 1,000 ML IV SCH ×2 (03:20→15:45)
[2017-04-21 06:00] VITALS: BP 124/63
[2017-04-21 06:11] LABS: BASOPHILS # (AUTO) 0.1 X10'3 (0-0.2); BASOPHILS % (AUTO) 0.3 % (0-1); EOSINOPHILS # (AUTO) 0.8 X10'3 (0-0.9); EOSINOPHILS % (AUTO) 4.5 % (0-6); HEMATOCRIT 31.3 % (42.0-52.0); HEMOGLOBIN 10.7 g/dl (14.0-17.9); LYMPHOCYTES # (AUTO) 1.9 X10'3 (1.1-4.8); LYMPHOCYTES % (AUTO) 10.8 % (21-51); MEAN CORPUSCULAR HEMOGLOBIN 30.7 PG (27.0-31.0); MEAN CORPUSCULAR HGB CONC 34.1 % (33.0-36.5); MEAN CORPUSCULAR VOLUME 89.9 FL (78-98); MEAN PLATELET VOLUME 6.9 FL (7.4-10.4); MONOCYTES % (AUTO) 5.4 % (2-12); RED BLOOD COUNT 3.48 X10'6 (4.70-6.10); RED CELL DISTRIBUTION WIDTH 14.5 % (11.5-14.5); WHITE BLOOD COUNT 17.7 X10'3 (4.5-11.0)
[2017-04-21 06:15] LABS: PLATELET COUNT 1294 X10'3 (140-440)
[2017-04-21 06:48] LABS: ALBUMIN 1.9 G/DL (3.4-5.0); ANION GAP 11 (8-16); BLOOD UREA NITROGEN 34 MG/DL (7-18); BUN/CREATININE RATIO 16.9 (5.4-32.0); CHLORIDE 101 MMOL/L (99-107); CREATININE 2.01 MG/DL (0.60-1.10); GLUCOSE 117 MG/DL (70-104); POTASSIUM 5.4 MMOL/L (3.5-5.1); SODIUM 136 MMOL/L (135-145); TOTAL CARBON DIOXIDE 24.5 MMOL/L (24-32); eGFR 35 ML/MIN
[2017-04-21] MEDS: vancomycin/NS 1 GM ADD-VANTAGE 250 ML IV SCH ×2 (07:54→21:07)
[2017-04-21] MEDS: linezolid 600mg tablet PO SCH ×2 (07:55→21:07)
[2017-04-21] MEDS: lisinopril 10 MG tablet PO SCH (07:55)
[2017-04-21] MEDS: nicotine 14mg patch - 24hr TD SCH (07:55)
[2017-04-21] MEDS: lactobacillus rhamnosus 10,000 MMU CELLS/CAPSULE PO SCH ×2 (07:55→17:18)
[2017-04-21] MEDS: aspirin 81mg tablet.DR PO SCH (07:55)
[2017-04-21] MEDS: enoxaparin 40mg/0.4ml syringe SUBCUT SCH (07:56)
[2017-04-21] MEDS ORDERED: sodium polystyrene sulfonate 15gm/60ml oral suspension PO ONE (09:55)
[2017-04-21 11:00] VITALS: BP 101/55
[2017-04-21 18:30] VITALS: BP 133/76
[2017-04-21 22:00] VITALS: BP 134/69
[2017-04-22] MEDS: diphenhydrAMINE 50 mg/ml inj IV PRN ×3 (00:03→21:02)
[2017-04-22] MEDS: HYDROcodone/acetaminophen 5mg/325mg tablet PO PRN ×5 (01:00→21:02)
[2017-04-22] MEDS: normal saline 1000ml 1,000 ML IV SCH ×2 (01:02→16:00)
[2017-04-22 06:00] VITALS: BP 140/84
[2017-04-22 06:46] LABS: BASOPHILS % (AUTO) 0.3 % (0-1); EOSINOPHILS # (AUTO) 0.8 X10'3 (0-0.9); EOSINOPHILS % (AUTO) 5.5 % (0-6); HEMATOCRIT 29.5 % (42.0-52.0); LYMPHOCYTES # (AUTO) 2.1 X10'3 (1.1-4.8); LYMPHOCYTES % (AUTO) 14.5 % (21-51); MEAN CORPUSCULAR HEMOGLOBIN 30.6 PG (27.0-31.0); MEAN CORPUSCULAR HGB CONC 33.8 % (33.0-36.5); MEAN CORPUSCULAR VOLUME 90.5 FL (78-98); MEAN PLATELET VOLUME 6.6 FL (7.4-10.4); MONOCYTES # (AUTO) 1.1 X10'3 (0-0.9); MONOCYTES % (AUTO) 7.3 % (2-12); NEUTROPHILS # (AUTO) 10.5 X10'3 (1.8-7.7); NEUTROPHILS % (AUTO) 72.4 % (42-75); RED BLOOD COUNT 3.26 X10'6 (4.70-6.10); RED CELL DISTRIBUTION WIDTH 14.4 % (11.5-14.5); WHITE BLOOD COUNT 14.5 X10'3 (4.5-11.0)
[2017-04-22 06:52] LABS: PLATELET COUNT 1365 X10'3 (140-440)
[2017-04-22] MEDS: lactobacillus rhamnosus 10,000 MMU CELLS/CAPSULE PO SCH ×2 (07:13→17:28)
[2017-04-22] MEDS: lisinopril 10 MG tablet PO SCH (07:14)
[2017-04-22] MEDS: aspirin 325mg tablet PO SCH (07:14)
[2017-04-22] MEDS: nicotine 14mg patch - 24hr TD SCH (07:14)
[2017-04-22] MEDS: vancomycin/NS 1 GM ADD-VANTAGE 250 ML IV SCH ×2 (07:14→21:03)
[2017-04-22] MEDS: cloNIDine 0.1 mg tablet PO SCH ×2 (07:14→16:22)
[2017-04-22] MEDS: linezolid 600mg tablet PO SCH ×2 (07:14→21:02)
[2017-04-22] MEDS: enoxaparin 40mg/0.4ml syringe SUBCUT SCH (07:15)
[2017-04-22 07:18] LABS: ALANINE AMINOTRANSFERASE 139 U/L (12-78); ALBUMIN 1.9 G/DL (3.4-5.0); ALBUMIN/GLOBULIN RATIO 0.3 (1.1-1.5); ALKALINE PHOSPHATASE 371 IU/L (46-116); ANION GAP 9 (8-16); ASPARTATE AMINO TRANSFERASE 92 U/L (10-37); BILIRUBIN,TOTAL 0.4 MG/DL (0.1-1.0); BLOOD UREA NITROGEN 30 MG/DL (7-18); BUN/CREATININE RATIO 16.7 (5.4-32.0); CHLORIDE 104 MMOL/L (99-107); GLUCOSE 111 MG/DL (70-104); SODIUM 138 MMOL/L (135-145); TOTAL CARBON DIOXIDE 24.6 MMOL/L (24-32); TOTAL PROTEIN 7.8 G/DL (6.4-8.2); eGFR 40 ML/MIN
[2017-04-22 11:00] VITALS: BP 121/61
[2017-04-22 18:30] VITALS: BP 128/77
[2017-04-22 22:00] VITALS: BP 124/72
[2017-04-23] MEDS: HYDROcodone/acetaminophen 5mg/325mg tablet PO PRN ×4 (00:50→21:49)
[2017-04-23 05:00] VITALS: BP 135/75
[2017-04-23] MEDS: normal saline 1000ml 1,000 ML IV SCH ×2 (05:04→20:02)
[2017-04-23] MEDS: traMADol 50MG tablet PO PRN ×2 (05:04→13:18)
[2017-04-23] MEDS: aspirin 325mg tablet PO SCH (07:28)
[2017-04-23] MEDS: vancomycin/NS 1 GM ADD-VANTAGE 250 ML IV SCH ×2 (07:28→19:26)
[2017-04-23] MEDS: cloNIDine 0.1 mg tablet PO SCH ×3 (07:28→16:04)
[2017-04-23] MEDS: nicotine 14mg patch - 24hr TD SCH (07:28)
[2017-04-23] MEDS: lactobacillus rhamnosus 10,000 MMU CELLS/CAPSULE PO SCH ×2 (07:28→19:25)
[2017-04-23] MEDS: diphenhydrAMINE 50 mg/ml inj IV PRN ×3 (07:29→21:49)
[2017-04-23] MEDS: enoxaparin 40mg/0.4ml syringe SUBCUT SCH (07:29)
[2017-04-23] MEDS: linezolid 600mg tablet PO SCH ×2 (07:29→19:25)
[2017-04-23] MEDS: lisinopril 10 MG tablet PO SCH (07:29)
[2017-04-23 07:54] LABS: BASOPHILS # (AUTO) 0.1 X10'3 (0-0.2); BASOPHILS % (AUTO) 0.8 % (0-1); EOSINOPHILS # (AUTO) 0.8 X10'3 (0-0.9); EOSINOPHILS % (AUTO) 5.3 % (0-6); HEMATOCRIT 27.5 % (42.0-52.0); HEMOGLOBIN 9.4 g/dl (14.0-17.9); MEAN CORPUSCULAR HEMOGLOBIN 30.7 PG (27.0-31.0); MEAN CORPUSCULAR HGB CONC 34.2 % (33.0-36.5); MEAN CORPUSCULAR VOLUME 89.6 FL (78-98); MEAN PLATELET VOLUME 6.8 FL (7.4-10.4); MONOCYTES # (AUTO) 0.9 X10'3 (0-0.9); MONOCYTES % (AUTO) 6.1 % (2-12); NEUTROPHILS # (AUTO) 10.7 X10'3 (1.8-7.7); NEUTROPHILS % (AUTO) 73.8 % (42-75); RED BLOOD COUNT 3.07 X10'6 (4.70-6.10); RED CELL DISTRIBUTION WIDTH 14.5 % (11.5-14.5); WHITE BLOOD COUNT 14.5 X10'3 (4.5-11.0)
[2017-04-23 07:57] LABS: PLATELET COUNT 1294 X10'3 (140-440)
[2017-04-23 08:19] LABS: ALANINE AMINOTRANSFERASE 247 U/L (12-78); ALBUMIN/GLOBULIN RATIO 0.3 (1.1-1.5); ALKALINE PHOSPHATASE 376 IU/L (46-116); ANION GAP 10 (8-16); ASPARTATE AMINO TRANSFERASE 183 U/L (10-37); BILIRUBIN,TOTAL 0.2 MG/DL (0.1-1.0); BLOOD UREA NITROGEN 28 MG/DL (7-18); BUN/CREATININE RATIO 15.4 (5.4-32.0); CALCIUM 9.3 MG/DL (8.5-10.1); CHLORIDE 103 MMOL/L (99-107); CREATININE 1.82 MG/DL (0.60-1.10); GLUCOSE 124 MG/DL (70-104); SODIUM 137 MMOL/L (135-145); TOTAL CARBON DIOXIDE 24.4 MMOL/L (24-32); TOTAL PROTEIN 8.1 G/DL (6.4-8.2); eGFR 39 ML/MIN
[2017-04-23 10:00] VITALS: BP 119/70
[2017-04-23 18:05] VITALS: BP_SYST 114; BP_SYST 154; BP_DIAS 64; BP_DIAS 79
[2017-04-23] MEDS ORDERED: LORazepam 2 mg/ml vial IV PRN (19:05)
[2017-04-23 22:12] VITALS: BP 130/78
[2017-04-24] MEDS: cloNIDine 0.1 mg tablet PO SCH ×3 (00:21→16:08)
[2017-04-24] MEDS: traMADol 50MG tablet PO PRN ×2 (00:21→07:36)
[2017-04-24] MEDS: normal saline 1000ml 1,000 ML IV SCH ×2 (00:24→13:23)
[2017-04-24] MEDS: HYDROcodone/acetaminophen 5mg/325mg tablet PO PRN ×5 (03:24→23:56)
[2017-04-24] MEDS: diphenhydrAMINE 50 mg/ml inj IV PRN ×3 (03:28→20:16)
[2017-04-24 06:00] VITALS: BP 120/70
[2017-04-24] MEDS: nicotine 14mg patch - 24hr TD SCH (07:35)
[2017-04-24] MEDS: lactobacillus rhamnosus 10,000 MMU CELLS/CAPSULE PO SCH ×2 (07:35→17:30)
[2017-04-24] MEDS: enoxaparin 40mg/0.4ml syringe SUBCUT SCH (07:36)
[2017-04-24] MEDS: vancomycin/NS 1 GM ADD-VANTAGE 250 ML IV SCH ×2 (07:36→20:12)
[2017-04-24] MEDS: linezolid 600mg tablet PO SCH ×2 (07:36→20:12)
[2017-04-24] MEDS: lisinopril 10 MG tablet PO SCH (07:36)
[2017-04-24] MEDS: aspirin 325mg tablet PO SCH (07:37)
[2017-04-24 10:00] VITALS: BP 126/70
[2017-04-24 18:30] VITALS: BP 141/70
[2017-04-24 22:00] VITALS: BP 141/81
[2017-04-25] MEDS: cloNIDine 0.1 mg tablet PO SCH ×3 (00:14→15:51)
[2017-04-25] MEDS: diphenhydrAMINE 50 mg/ml inj IV PRN ×2 (02:13→11:53)
[2017-04-25] MEDS: traMADol 50MG tablet PO PRN ×2 (02:14→11:53)
[2017-04-25 05:00] VITALS: BP 104/64
[2017-04-25 07:09] VITALS: BP 126/72
[2017-04-25] MEDS: aspirin 325mg tablet PO SCH (07:13)
[2017-04-25] MEDS: lisinopril 10 MG tablet PO SCH (07:13)
[2017-04-25] MEDS: HYDROcodone/acetaminophen 5mg/325mg tablet PO PRN ×2 (07:14→14:28)
[2017-04-25] MEDS: enoxaparin 40mg/0.4ml syringe SUBCUT SCH (07:14)
[2017-04-25] MEDS: linezolid 600mg tablet PO SCH (07:14)
[2017-04-25] MEDS: lactobacillus rhamnosus 10,000 MMU CELLS/CAPSULE PO SCH (07:14)
[2017-04-25] MEDS: vancomycin/NS 1 GM ADD-VANTAGE 250 ML IV SCH (07:14)
[2017-04-25] MEDS: nicotine 14mg patch - 24hr TD SCH (07:14)
[2017-04-25] MEDS: normal saline 1000ml 1,000 ML IV SCH (07:20)
[2017-04-25 10:00] VITALS: BP 111/62
== END 2017-04-25 16:00 | DRG 720 ==
LOC: ER 21:00 → ED HOLD 04-10 04:35 → PCU 3S 04-10 08:10 → ORTHO 4S 04-17 12:30
PROVIDERS: ADMIT Internal Medicine; ATTEND Family Medicine
PROC: 0T788DZ Dilation of Bilateral Ureters with Intraluminal Device, Via Natural or Artificial Opening Endoscopic (ICD-10-PCS; principal; 2017-04-10 05:48)
PROC: B24BZZ4 Ultrasonography of Heart with Aorta, Transesophageal (ICD-10-PCS; 2017-04-15)
DX: A41.02 Sepsis due to Methicillin resistant Staphylococcus aureus (principal); J96.00 Acute respiratory failure, unspecified whether with hypoxia or hypercapnia; I26.90 Septic pulmonary embolism without acute cor pulmonale; E43 Unspecified severe protein-calorie malnutrition; N17.9 Acute kidney failure, unspecified; E87.5 Hyperkalemia; F11.20 Opioid dependence, uncomplicated; N15.1 Renal and perinephric abscess; N20.2 Calculus of kidney with calculus of ureter; Z60.2 Problems related to living alone; F15.10 Other stimulant abuse, uncomplicated; F17.210 Nicotine dependence, cigarettes, uncomplicated; G89.29 Other chronic pain; I12.9 Hypertensive chronic kidney disease with stage 1 through stage 4 chronic kidney disease, or unspecified chronic kidney disease; I08.1 Rheumatic disorders of both mitral and tricuspid valves; K21.9 Gastro-esophageal reflux disease without esophagitis; L08.89 Other specified local infections of the skin and subcutaneous tissue; N18.9 Chronic kidney disease, unspecified; R79.89 Other specified abnormal findings of blood chemistry; N13.6 Pyonephrosis; D64.9 Anemia, unspecified; Z68.28 Body mass index [BMI] 28.0-28.9, adult; Z85.028 Personal history of other malignant neoplasm of stomach; Z79.899 Other long term (current) drug therapy
CPT/HCPCS: 36415; 36569; 71010; 71250; 76000; 76937; 80048; 80053; 80202; 80305; 81001; 83605; 83735; 83880; 84145; 84484; 85025; 85610; 85730; 87040; 87070; 87077; 87088; 87186; 93005; 93306; 93312; 94660; 96361; 96365; 96375; 96376; 97116; 97161; 97530; 99285; A4402; A6212; A6213; A6222; A6446; A6449; C1758; C1769; C2617; J0360; J0696; J1100; J1200; J1630; J1650; J2001; J2060; J2250; J2270; J2405; J2704; J2765; J3010; J3370; J3490; J7030; J7120; Q9963

== ENCOUNTER 2017-05-23 18:29 | Emergency (ER) | payer MEDICAID ==
[~2017-05-23] VITALS: Ht 188 cm; Wt 100.0 kg
[2017-05-23 18:53] LABS: BASOPHILS % (AUTO) 0.6 % (0-1); EOSINOPHILS # (AUTO) 1.4 X10'3 (0-0.9); EOSINOPHILS % (AUTO) 16.8 % (0-6); HEMATOCRIT 30.2 % (42.0-52.0); HEMOGLOBIN 10.8 g/dl (14.0-17.9); LYMPHOCYTES # (AUTO) 2.3 X10'3 (1.1-4.8); LYMPHOCYTES % (AUTO) 27.3 % (21-51); MEAN CORPUSCULAR HEMOGLOBIN 30.5 PG (27.0-31.0); MEAN CORPUSCULAR HGB CONC 35.6 % (33.0-36.5); MEAN CORPUSCULAR VOLUME 85.6 FL (78-98); MEAN PLATELET VOLUME 6.5 FL (7.4-10.4); MONOCYTES % (AUTO) 11.4 % (2-12); NEUTROPHILS # (AUTO) 3.7 X10'3 (1.8-7.7); NEUTROPHILS % (AUTO) 43.9 % (42-75); PLATELET COUNT 432 X10'3 (140-440); RED BLOOD COUNT 3.53 X10'6 (4.70-6.10); RED CELL DISTRIBUTION WIDTH 14.2 % (11.5-14.5); WHITE BLOOD COUNT 8.5 X10'3 (4.5-11.0)
[2017-05-23 19:02] LABS: CLARITY,URINE SLIGHTLY CLOUDY (Clear); COLOR,URINE YELLOW (Yellow); GLUCOSE, URINE NEGATIVE (Neg); KETONES,URINE NEGATIVE (Neg); LEUKOCYTE ESTERASE ,URINE MODERATE (Neg); NITRITES, URINE NEGATIVE (Neg); OCCULT BLOOD,URINE LARGE (Neg); PROTEIN,URINE 30 mg/dl (Neg); UROBILINOGEN,URINE 0.2 E.U/dL (0.2-1.0)
[2017-05-23 19:07] LABS: UA COLLECTION TYPE CLN CATCH MIDSTREAM
[2017-05-23 19:08] LABS: ALANINE AMINOTRANSFERASE 42 U/L (12-78); ALBUMIN 3.2 G/DL (3.4-5.0); ALBUMIN/GLOBULIN RATIO 0.7 (1.1-1.5); ALKALINE PHOSPHATASE 147 IU/L (46-116); ANION GAP 9 (8-16); ASPARTATE AMINO TRANSFERASE 19 U/L (10-37); BILIRUBIN,TOTAL 0.2 MG/DL (0.1-1.0); BLOOD UREA NITROGEN 41 MG/DL (7-18); BUN/CREATININE RATIO 19.5 (5.4-32.0); CHLORIDE 104 MMOL/L (99-107); GLUCOSE 134 MG/DL (70-104); POTASSIUM 4.4 MMOL/L (3.5-5.1); SODIUM 139 MMOL/L (135-145); TOTAL CARBON DIOXIDE 25.6 MMOL/L (24-32); eGFR 33 ML/MIN
[2017-05-23 19:28] LABS: RBC,URINE TNTC /HPF (0-2); SQUAMOUS EPITHELIAL CELL,UR FEW /LPF (FEW)
[2017-05-23 19:29] LABS: BACTERIA,URINE FEW /HPF (Neg); WBC,URINE 20-30 /HPF (0-4)
[2017-05-23] MEDS ORDERED: sulfamethoxazole/trimethoprim DS (800/160mg) tablet PO ONE (19:45)
[2017-05-23] MEDS ORDERED: SULF1TAB49 PO (20:10)
[2017-05-23 20:23] VITALS: BP 103/63
== END 2017-05-23 20:34 | disposition home or self-care (01) ==
LOC: ER 18:30
DX: N39.0 Urinary tract infection, site not specified (principal); N15.1 Renal and perinephric abscess; I10 Essential (primary) hypertension; K21.9 Gastro-esophageal reflux disease without esophagitis; F15.10 Other stimulant abuse, uncomplicated
CPT/HCPCS: 36415; 76775; 80053; 81001; 85025; 87088; 99285

== ENCOUNTER 2018-04-03 12:04 | Emergency (ER) | payer MEDICAID ==
[~2018-04-03] VITALS: Ht 188 cm; Wt 100.0 kg
[~2018-04-03 12:04] MED LIST changes: +HYDR-4353 PO; -HYDR-565 PO; +IBUP-2417 PO; -IBUP200C74 PO
[2018-04-03] MEDS ORDERED: hydrALAZINE 20mg/ml inj. IV ONE (12:25)
[2018-04-03] MEDS ORDERED: ketorolac trometh. 30mg/ml inj. IV ONE (12:25)
[2018-04-03] MEDS ORDERED: ondansetron/PF 4mg/2ml inj IV ONE (12:25)
[2018-04-03 13:01] LABS: BASOPHILS % (AUTO) 0.5 % (0-1); EOSINOPHILS # (AUTO) 0.4 X10'3 (0-0.9); EOSINOPHILS % (AUTO) 6.3 % (0-6); HEMATOCRIT 41.8 % (42.0-52.0); HEMOGLOBIN 14.1 g/dl (14.0-17.9); LYMPHOCYTES # (AUTO) 2.1 X10'3 (1.1-4.8); LYMPHOCYTES % (AUTO) 32.9 % (21-51); MEAN CORPUSCULAR HEMOGLOBIN 30.6 PG (27.0-31.0); MEAN CORPUSCULAR HGB CONC 33.6 % (33.0-36.5); MEAN CORPUSCULAR VOLUME 90.9 FL (78-98); MEAN PLATELET VOLUME 7.2 FL (7.4-10.4); MONOCYTES # (AUTO) 0.5 X10'3 (0-0.9); MONOCYTES % (AUTO) 7.5 % (2-12); NEUTROPHILS # (AUTO) 3.4 X10'3 (1.8-7.7); NEUTROPHILS % (AUTO) 52.8 % (42-75); PLATELET COUNT 394 X10'3 (140-440); RED CELL DISTRIBUTION WIDTH 13.7 % (11.5-14.5); WHITE BLOOD COUNT 6.5 X10'3 (4.5-11.0)
[2018-04-03 13:03] LABS: CLARITY,URINE CLOUDY (Clear); COLOR,URINE YELLOW (Yellow); GLUCOSE, URINE NEGATIVE (Neg); KETONES,URINE NEGATIVE (Neg); LEUKOCYTE ESTERASE ,URINE TRACE (Neg); NITRITES, URINE NEGATIVE (Neg); OCCULT BLOOD,URINE LARGE (Neg); PROTEIN,URINE TRACE mg/dl (Neg); UROBILINOGEN,URINE 0.2 E.U/dL (0.2-1.0)
[2018-04-03 13:09] LABS: UA COLLECTION TYPE CLN CATCH MIDSTREAM
[2018-04-03] MEDS ORDERED: HYDR-4353 PO (13:16)
[2018-04-03] MEDS ORDERED: DIAZ5TAB PO (13:16)
[2018-04-03] MEDS ORDERED: ONDA4TAB9 PO (13:16)
[2018-04-03] MEDS ORDERED: OXYB5TAB11 PO (13:17)
[2018-04-03] MEDS ORDERED: KETO10TA2 PO (13:17)
[2018-04-03] MEDS ORDERED: FLO0.4C PO (13:17)
[2018-04-03] MEDS ORDERED: PHEN-824 PO (13:17)
[2018-04-03 13:20] LABS: ALANINE AMINOTRANSFERASE 38 U/L (12-78); ALBUMIN 3.4 G/DL (3.4-5.0); ALKALINE PHOSPHATASE 100 IU/L (46-116); ANION GAP 8 (8-16); ASPARTATE AMINO TRANSFERASE 21 U/L (10-37); BILIRUBIN,TOTAL 0.2 MG/DL (0.1-1.0); BLOOD UREA NITROGEN 15 MG/DL (7-18); BUN/CREATININE RATIO 9.3 (5.4-32.0); CALCIUM 8.3 MG/DL (8.5-10.1); CHLORIDE 107 MMOL/L (99-107); CREATININE 1.62 MG/DL (0.60-1.10); GLUCOSE 102 MG/DL (70-104); LIPASE 485 U/L (73-393); POTASSIUM 4.7 MMOL/L (3.5-5.1); SODIUM 140 MMOL/L (135-145); TOTAL CARBON DIOXIDE 24.9 MMOL/L (24-32); TOTAL PROTEIN 6.9 G/DL (6.4-8.2); eGFR 45 ML/MIN
[2018-04-03 13:24] LABS: BACTERIA,URINE NONE SEEN /HPF (Neg); MUCUS STRANDS NONE SEEN /LPF (Neg); RBC,URINE 50-100 /HPF (0-2); SQUAMOUS EPITHELIAL CELL,UR NONE SEEN /LPF (FEW); WBC,URINE 0-4 /HPF (0-4)
[2018-04-03 14:04] VITALS: BP 205/161
== END 2018-04-03 14:07 | disposition home or self-care (01) ==
LOC: ER 12:05
DX: N23 Unspecified renal colic (principal); N20.0 Calculus of kidney; I10 Essential (primary) hypertension; K21.9 Gastro-esophageal reflux disease without esophagitis; G89.29 Other chronic pain; F15.90 Other stimulant use, unspecified, uncomplicated; Z56.0 Unemployment, unspecified; Z98.890 Other specified postprocedural states; Z79.899 Other long term (current) drug therapy
CPT/HCPCS: 36415; 74176; 80053; 81001; 83690; 85025; 87088; 96374; 96375; 99284; J0360; J1885; J2405

== ENCOUNTER 2019-08-06 16:02 | Emergency (ER) | payer MEDICAID ==
[~2019-08-06] VITALS: Ht 188 cm; Wt 111.0 kg
[~2019-08-06 16:02] MED LIST changes: +DIAZ5TAB PO; +KETO10TA2 PO; +OMEP40CA13 PO; -OMEP40CA37 PO; +OXYB5TAB16 PO; +PHEN-824 PO
[2019-08-06 16:29] VITALS: BP 154/104
[2019-08-06] MEDS ORDERED: ketorolac trometh. 30mg/ml inj. IM ONE (17:15)
== END 2019-08-06 17:51 | disposition home or self-care (01) ==
LOC: ER 16:03
DX: S62.002A Unspecified fracture of navicular [scaphoid] bone of left wrist, initial encounter for closed fracture (principal); S50.812A Abrasion of left forearm, initial encounter; R05 Cough; I10 Essential (primary) hypertension; K21.9 Gastro-esophageal reflux disease without esophagitis; G89.29 Other chronic pain; F15.90 Other stimulant use, unspecified, uncomplicated; Z56.0 Unemployment, unspecified; Z87.442 Personal history of urinary calculi; Z79.899 Other long term (current) drug therapy; W17.89XA Other fall from one level to another, initial encounter; Y93.89 Activity, other specified; Y92.488 Other paved roadways as the place of occurrence of the external cause; Y99.8 Other external cause status
CPT/HCPCS: 29125; 73110; 73130; 96372; 99284; J1885

== ENCOUNTER 2019-09-16 06:04 | Emergency (ER) | payer MEDICAID ==
[~2019-09-16] VITALS: Ht 193 cm; Wt 109.1 kg
[2019-09-16] MEDS ORDERED: QUET25TA PO (07:17)
[2019-09-16] MEDS ORDERED: ACET-2119 PO (07:22)
[2019-09-16 07:35] LABS: CLARITY,URINE CLEAR (Clear); COLOR,URINE YELLOW (Yellow); GLUCOSE, URINE NEGATIVE (Neg); KETONES,URINE NEGATIVE (Neg); LEUKOCYTE ESTERASE ,URINE NEGATIVE (Neg); NITRITES, URINE NEGATIVE (Neg); OCCULT BLOOD,URINE SMALL (Neg); PH,URINE 5.5 (4.8-8.0); PROTEIN,URINE 30 mg/dl (Neg); UROBILINOGEN,URINE 0.2 E.U/dL (0.2-1.0)
[2019-09-16 07:41] LABS: UA COLLECTION TYPE CLN CATCH MIDSTREAM
[2019-09-16 07:42] LABS: BACTERIA,URINE 1+ /HPF (Neg); MUCUS STRANDS MODERATE /LPF (Neg); RBC,URINE 0-2 /HPF (0-2); SQUAMOUS EPITHELIAL CELL,UR MODERATE /LPF (FEW)
[2019-09-16 07:43] LABS: HYALINE CASTS 0-3 /LPF (NEGATIVE); WBC,URINE 0-4 /HPF (0-4)
[2019-09-16 08:43] VITALS: BP 140/90
--- NOTE | 2019-09-16 08:43 | NUR ---
WELL BLOWER PLACING PT IN SPLINT
== END 2019-09-16 09:18 | disposition home or self-care (01) ==
LOC: ER 06:05
DX: S62.102A Fracture of unspecified carpal bone, left wrist, initial encounter for closed fracture (principal); R44.0 Auditory hallucinations; I10 Essential (primary) hypertension; K21.9 Gastro-esophageal reflux disease without esophagitis; G89.29 Other chronic pain; F15.90 Other stimulant use, unspecified, uncomplicated; Z56.0 Unemployment, unspecified; Z98.890 Other specified postprocedural states; Z79.899 Other long term (current) drug therapy; X58.XXXA Exposure to other specified factors, initial encounter; Y93.89 Activity, other specified; Y92.89 Other specified places as the place of occurrence of the external cause; Y99.8 Other external cause status
CPT/HCPCS: 29125; 73110; 81001; 99285

== ENCOUNTER 2019-11-18 13:54 | Emergency (ER) | payer MEDICAID ==
[~2019-11-18] VITALS: Ht 193 cm; Wt 112.0 kg
--- NOTE | 2019-11-18 14:41 | NUR ---
EKG 1433 LS
[2019-11-18 15:40] LABS: BASOPHILS % (AUTO) 0.6 % (0-1); EOSINOPHILS # (AUTO) 0.4 X10'3 (0-0.9); EOSINOPHILS % (AUTO) 5.8 % (0-6); HEMATOCRIT 44.3 % (42.0-52.0); HEMOGLOBIN 14.8 g/dl (14.0-17.9); LYMPHOCYTES # (AUTO) 2.6 X10'3 (1.1-4.8); LYMPHOCYTES % (AUTO) 36.3 % (21-51); MEAN CORPUSCULAR HEMOGLOBIN 30.1 PG (27.0-31.0); MEAN CORPUSCULAR HGB CONC 33.5 g/dL (33.0-36.5); MEAN CORPUSCULAR VOLUME 89.9 FL (78-98); MEAN PLATELET VOLUME 7.5 FL (7.4-10.4); MONOCYTES # (AUTO) 0.7 X10'3 (0-0.9); MONOCYTES % (AUTO) 9.4 % (2-12); NEUTROPHILS # (AUTO) 3.4 X10'3 (1.8-7.7); NEUTROPHILS % (AUTO) 47.9 % (42-75); PLATELET COUNT 278 X10'3 (140-440); RED BLOOD COUNT 4.93 X10'6 (4.70-6.10); RED CELL DISTRIBUTION WIDTH 15.9 % (11.5-14.5); WHITE BLOOD COUNT 7.1 X10'3 (4.5-11.0)
[2019-11-18 15:54] LABS: PARTIAL THROMBOPLASTIN TIME 26 SECONDS (22-32)
[2019-11-18 15:56] LABS: ALANINE AMINOTRANSFERASE 59 U/L (12-78); ALBUMIN 3.9 G/DL (3.4-5.0); ALBUMIN/GLOBULIN RATIO 1.1 (1.1-1.5); ALKALINE PHOSPHATASE 109 IU/L (46-116); ANION GAP 9 (8-16); ASPARTATE AMINO TRANSFERASE 43 U/L (10-37); BILIRUBIN,TOTAL 0.3 MG/DL (0.1-1.0); BLOOD UREA NITROGEN 20 MG/DL (7-18); BUN/CREATININE RATIO 9.5 (5.4-32.0); CALCIUM 8.5 MG/DL (8.5-10.1); CHLORIDE 107 MMOL/L (99-107); CREATININE 2.11 MG/DL (0.60-1.10); GLUCOSE 95 MG/DL (70-104); LIPASE 513 U/L (73-393); MAGNESIUM 2.1 MG/DL (1.5-2.4); POTASSIUM 4.4 MMOL/L (3.5-5.1); SODIUM 143 MMOL/L (135-145); TOTAL CARBON DIOXIDE 26.8 MMOL/L (24-32); TOTAL PROTEIN 7.3 G/DL (6.4-8.2); eGFR 33 ML/MIN
[2019-11-18 15:58] LABS: ETHANOL < 0.010 GM/DL (0.0-0.010)
[2019-11-18 16:42] LABS: CLARITY,URINE CLEAR (Clear); COLOR,URINE YELLOW (Yellow); GLUCOSE, URINE NEGATIVE (Neg); KETONES,URINE NEGATIVE (Neg); LEUKOCYTE ESTERASE ,URINE NEGATIVE (Neg); NITRITES, URINE NEGATIVE (Neg); OCCULT BLOOD,URINE SMALL (Neg); PROTEIN,URINE TRACE mg/dl (Neg)
[2019-11-18 16:43] LABS: UA COLLECTION TYPE CLN CATCH MIDSTREAM
[2019-11-18 16:49] LABS: BACTERIA,URINE NONE SEEN /HPF (Neg); RBC,URINE 0-2 /HPF (0-2); SQUAMOUS EPITHELIAL CELL,UR FEW /LPF (FEW); WBC,URINE 0-4 /HPF (0-4)
[2019-11-18] MEDS ORDERED: HYDROcodone/acetaminophen 10/325mg tab PO ONE ×2 (17:10→18:20)
[2019-11-18] MEDS ORDERED: lisinopril 10 MG tablet PO ONE (17:10)
[2019-11-18] MEDS ORDERED: cloNIDine 0.1 mg tablet PO ONE (17:10)
[2019-11-18] MEDS ORDERED: naproxen 500mg tablet PO ONE (17:10)
[2019-11-18] MEDS ORDERED: hyDRALAzine 10mg tablet PO STA (17:16)
[2019-11-18] MEDS ORDERED: CLON-528 PO (17:16)
[2019-11-18] MEDS ORDERED: LISI-643 PO (17:16)
[2019-11-18] MEDS ORDERED: TRAM50TA2 PO (17:18)
--- NOTE | 2019-11-18 18:08 | NUR ---
CALL MIKE SUSANJay GALARZA WHEN DISCHARGED [phone] Addendum: 11/18/19 at 1809 by ABISAI [facility] [place] LINE [phone]
[2019-11-18 18:53] VITALS: BP 187/124
== END 2019-11-18 19:14 | disposition home or self-care (01) ==
LOC: ER 13:54
DX: I12.9 Hypertensive chronic kidney disease with stage 1 through stage 4 chronic kidney disease, or unspecified chronic kidney disease (principal); N18.9 Chronic kidney disease, unspecified; M54.9 Dorsalgia, unspecified; G89.29 Other chronic pain; F15.90 Other stimulant use, unspecified, uncomplicated; K21.9 Gastro-esophageal reflux disease without esophagitis; Z87.442 Personal history of urinary calculi; Z85.9 Personal history of malignant neoplasm, unspecified; Z98.890 Other specified postprocedural states; Z56.0 Unemployment, unspecified; Z79.899 Other long term (current) drug therapy
CPT/HCPCS: 36415; 71045; 80053; 80320; 81001; 83690; 83735; 84484; 85025; 85610; 85730; 93005; 99285

== ENCOUNTER 2019-12-07 10:35 | Inpatient (IN) | payer MEDICAID ==
[~2019-12-07] VITALS: Ht 190.5 cm; Wt 111.9 kg
[~2019-12-07 10:35] MED LIST changes: +CLON-528 PO; +LISI-643 PO; +TRAM50TA2 PO
[2019-12-07] MEDS ORDERED: aspirin 81mg tab.chew PO ONE (11:00)
[2019-12-07] MEDS: nitroGLYCERIN 0.4mg SUBLingual tab SL PRN ×2 (11:06→11:25)
[2019-12-07 11:27] LABS: BASOPHILS # (AUTO) 0.1 X10'3 (0-0.2); BASOPHILS % (AUTO) 0.7 % (0-1); EOSINOPHILS # (AUTO) 0.4 X10'3 (0-0.9); EOSINOPHILS % (AUTO) 5.6 % (0-6); HEMATOCRIT 47.1 % (42.0-52.0); HEMOGLOBIN 15.8 g/dl (14.0-17.9); LYMPHOCYTES % (AUTO) 27.1 % (21-51); MEAN CORPUSCULAR HEMOGLOBIN 30.2 PG (27.0-31.0); MEAN CORPUSCULAR HGB CONC 33.5 g/dL (33.0-36.5); MEAN CORPUSCULAR VOLUME 90.2 FL (78-98); MEAN PLATELET VOLUME 7.6 FL (7.4-10.4); MONOCYTES # (AUTO) 0.5 X10'3 (0-0.9); MONOCYTES % (AUTO) 6.3 % (2-12); NEUTROPHILS # (AUTO) 4.5 X10'3 (1.8-7.7); NEUTROPHILS % (AUTO) 60.3 % (42-75); PLATELET COUNT 331 X10'3 (140-440); RED BLOOD COUNT 5.22 X10'6 (4.70-6.10); RED CELL DISTRIBUTION WIDTH 16.2 % (11.5-14.5); WHITE BLOOD COUNT 7.5 X10'3 (4.5-11.0)
[2019-12-07] MEDS ORDERED: iohexol 350MG/ML 100ml bottle IV ONE (11:36)
[2019-12-07 11:43] LABS: ALANINE AMINOTRANSFERASE 52 U/L (12-78); ALBUMIN 4.1 G/DL (3.4-5.0); ALBUMIN/GLOBULIN RATIO 1.1 (1.1-1.5); ALKALINE PHOSPHATASE 108 IU/L (46-116); ANION GAP 12 (8-16); ASPARTATE AMINO TRANSFERASE 27 U/L (10-37); BILIRUBIN,TOTAL 0.4 MG/DL (0.1-1.0); BLOOD UREA NITROGEN 21 MG/DL (7-18); BUN/CREATININE RATIO 8.3 (5.4-32.0); CALCIUM 8.8 MG/DL (8.5-10.1); CHLORIDE 110 MMOL/L (99-107); CREATININE 2.53 MG/DL (0.60-1.10); GLUCOSE 158 MG/DL (70-104); POTASSIUM 3.8 MMOL/L (3.5-5.1); SODIUM 142 MMOL/L (135-145); TOTAL CARBON DIOXIDE 19.6 MMOL/L (24-32); TOTAL PROTEIN 7.7 G/DL (6.4-8.2); eGFR 27 ML/MIN
[2019-12-07] MEDS ORDERED: normal saline 1000ML IV soln IVB ONE (11:55)
[2019-12-07] MEDS ORDERED: morphine 4 MG/ML inj SYRINge IV ONE (12:05)
--- NOTE | 2019-12-07 12:34 | NUR ---
relieving RN for break, pt to CT
--- NOTE | 2019-12-07 12:48 | NUR ---
pt back from CT
[2019-12-07] MEDS ORDERED: CLON0.2T PO (13:25)
[2019-12-07] MEDS ORDERED: labetalol 20mg/4ml (5mg/ml) syringe IV ONE (13:30)
[2019-12-07] MEDS ORDERED: OMEP-50 PO (13:32)
[2019-12-07] MEDS ORDERED: LISI10TA4 PO (13:32)
[2019-12-07] MEDS: normal saline 1000ml 1,000 ML IV SCH ×2 (13:59→14:00)
[2019-12-07] MEDS ORDERED: acetaminophen 325mg tablet PO PRN (14:00)
[2019-12-07] MEDS ORDERED: mag hydrox/Alum hydrox/simeth 30ml oral suspension PO PRN (14:00)
[2019-12-07] MEDS ORDERED: morphine 2 MG/ML inj. syringe IV PRN (14:00)
[2019-12-07] MEDS ORDERED: magnesium hydroxide 30ml (MOM) UD suspension PO PRN (14:00)
[2019-12-07] MEDS ORDERED: ondansetron/PF 4mg/2ml inj IV PRN (14:00)
--- NOTE | 2019-12-07 14:59 | NUR ---
promotional table spacer PAGER ID: [phone] MESSAGE: Adam [email or web address], Sherrill. Pt BP 171/110, and received labetalol push in ED 1 hour ago, please adviseDenise [id number]
[2019-12-07 15:00] VITALS: BP 168/111
[2019-12-07] MEDS ORDERED: cyclobenzaprine 10mg tablet PO PRN (15:15)
[2019-12-07] MEDS: carvedilol 6.25mg tablet PO SCH ×2 (15:33→19:14)
[2019-12-07] MEDS: morphine 2 MG/ML inj. syringe IV PRN ×2 (16:47→22:17)
[2019-12-07] MEDS: hydrALAZINE 20mg/ml inj. IV PRN (16:49)
[2019-12-07 18:00] VITALS: BP 198/126
--- NOTE | 2019-12-07 18:30 | NUR ---
Patient in room PCU 3016. I have received report from Denise Enamorado RN and had the opportunity to ask questions and assume patient care.
--- NOTE | 2019-12-07 18:34 | NUR ---
Problems reprioritized. Patient report given, questions answered & plan of care reviewed with Osorio RN. Patient stable at transfer of care.
[2019-12-07] MEDS: cloNIDine 0.1 mg tablet PO SCH (19:14)
[2019-12-07] MEDS: heparin, porcine 5000 units/ml vial SQ SCH (19:14)
[2019-12-07 19:36] LABS: CLARITY,URINE CLEAR (Clear); COLOR,URINE YELLOW (Yellow); GLUCOSE, URINE NEGATIVE (Neg); KETONES,URINE NEGATIVE (Neg); LEUKOCYTE ESTERASE ,URINE NEGATIVE (Neg); NITRITES, URINE NEGATIVE (Neg); OCCULT BLOOD,URINE TRACE-INTACT (Neg); PROTEIN,URINE NEGATIVE (Neg); UROBILINOGEN,URINE 0.2 E.U/dL (0.2-1.0)
[2019-12-07 19:38] LABS: UA COLLECTION TYPE NON-SPECIFIED
[2019-12-07 19:41] LABS: RBC,URINE 0-2 /HPF (0-2); WBC,URINE NONE SEEN /HPF (0-4)
[2019-12-07 19:42] LABS: BACTERIA,URINE NONE SEEN /HPF (Neg); SQUAMOUS EPITHELIAL CELL,UR FEW /LPF (FEW)
[2019-12-07 19:49] LABS: URINE AMPHETAMINE SCREEN NEGATIVE (Neg); URINE BARBITUATE SCREEN NEGATIVE (Neg); URINE BENZODIAZEPINES SCREEN NEGATIVE (Neg); URINE CANNABINOID SCREEN NEGATIVE (Neg); URINE COCAINE SCREEN NEGATIVE (Neg); URINE METHADONE SCREEN NEGATIVE (Neg); URINE OPIATE SCREEN POSITIVE (Neg); URINE PHENCYCLIDINE SCREEN NEGATIVE (Neg)
[2019-12-07 22:00] VITALS: BP 167/99
[2019-12-08 02:00] VITALS: BP 163/101
[2019-12-08] MEDS: morphine 2 MG/ML inj. syringe IV PRN ×2 (02:58→08:04)
[2019-12-08] MEDS: hydrALAZINE 20mg/ml inj. IV PRN (03:04)
[2019-12-08 05:45] LABS: BASOPHILS % (AUTO) 0.7 % (0-1); EOSINOPHILS # (AUTO) 0.4 X10'3 (0-0.9); EOSINOPHILS % (AUTO) 6.1 % (0-6); HEMATOCRIT 43.2 % (42.0-52.0); HEMOGLOBIN 14.6 g/dl (14.0-17.9); LYMPHOCYTES # (AUTO) 2.3 X10'3 (1.1-4.8); LYMPHOCYTES % (AUTO) 33.2 % (21-51); MEAN CORPUSCULAR HEMOGLOBIN 30.4 PG (27.0-31.0); MEAN CORPUSCULAR HGB CONC 33.9 g/dL (33.0-36.5); MEAN CORPUSCULAR VOLUME 89.8 FL (78-98); MEAN PLATELET VOLUME 7.6 FL (7.4-10.4); MONOCYTES # (AUTO) 0.6 X10'3 (0-0.9); MONOCYTES % (AUTO) 8.1 % (2-12); NEUTROPHILS # (AUTO) 3.6 X10'3 (1.8-7.7); NEUTROPHILS % (AUTO) 51.9 % (42-75); PLATELET COUNT 275 X10'3 (140-440); RED BLOOD COUNT 4.81 X10'6 (4.70-6.10); RED CELL DISTRIBUTION WIDTH 15.7 % (11.5-14.5)
[2019-12-08 05:53] LABS: ALBUMIN 3.6 G/DL (3.4-5.0); ANION GAP 12 (8-16); BLOOD UREA NITROGEN 21 MG/DL (7-18); BUN/CREATININE RATIO 12.3 (5.4-32.0); CALCIUM 8.5 MG/DL (8.5-10.1); CHLORIDE 108 MMOL/L (99-107); CREATININE 1.71 MG/DL (0.60-1.10); GLUCOSE 116 MG/DL (70-104); POTASSIUM 3.9 MMOL/L (3.5-5.1); SODIUM 140 MMOL/L (135-145); TOTAL CARBON DIOXIDE 20.5 MMOL/L (24-32); eGFR 42 ML/MIN
--- NOTE | 2019-12-08 06:28 | NUR ---
Problems reprioritized. Patient report given, questions answered & plan of care reviewed with Marylou Haque RN.
--- NOTE | 2019-12-08 06:37 | NUR ---
Patient in room PCU 3016. I have received report from lois RN and had the opportunity to ask questions and assume patient care.
[2019-12-08 07:00] VITALS: BP 175/104
[2019-12-08] MEDS: cloNIDine 0.1 mg tablet PO SCH (07:55)
[2019-12-08] MEDS: heparin, porcine 5000 units/ml vial SQ SCH (07:56)
[2019-12-08] MEDS: carvedilol 6.25mg tablet PO SCH (07:56)
[2019-12-08] MEDS ORDERED: pantoprazole 40mg Tablet.DR PO SCH (08:00)
[2019-12-08] MEDS ORDERED: lisinopril 10 MG tablet PO SCH (08:00)
[2019-12-08 11:00] VITALS: BP 152/104
[2019-12-08] MEDS: normal saline 1000ml 1,000 ML IV SCH (11:47)
--- NOTE | 2019-12-08 13:25 | NUR ---
Paged Dr. Tsai Re: Vishal Mccartney RM [id number]. Patient is requesting pain medication he has only morphine Iv, Also are you wanting IV fluids running still? Please advise, Thank you Marylou MATTHEWS [phone]
[2019-12-08] MEDS ORDERED: CYCL-1 PO (14:34)
[2019-12-08 15:00] VITALS: BP 154/105
--- NOTE | 2019-12-08 15:50 | NUR ---
Paged Dr. Tsai Re: Vishal Mccartney RM [id number]. Patient disagrees with discharge summary. Patient aggressive. Please and Thank you Marylou MATTHEWS [phone]
--- NOTE | 2019-12-08 16:34 | NUR ---
Patient stable for discharge per MD orders. All items were collected and sent with patient. Patient was able to obtain a taxi thr hospital to transfer patient home. Patient vital signs were elevated, but patient was hostile and aggressive. Patient was demanding of pain medication and refused to discharge when paperwork had, "False", reasonings on it. Security was involved and patient escorted with tech and security via wheelchair. Patient was given discharge instructions and all medications were gone over. Patient was upset and aggressive.
== END 2019-12-08 16:50 | disposition home or self-care (01) | DRG 203 ==
LOC: ER 10:35 → ED HOLD 13:59 → PCU 3S 14:35 → OBSVTOIN 12-08 08:00
PROVIDERS: ADMIT Family Medicine; ATTEND Family Medicine
DX: R07.89 Other chest pain (principal); F15.90 Other stimulant use, unspecified, uncomplicated; F17.210 Nicotine dependence, cigarettes, uncomplicated; G89.4 Chronic pain syndrome; N17.9 Acute kidney failure, unspecified; I12.9 Hypertensive chronic kidney disease with stage 1 through stage 4 chronic kidney disease, or unspecified chronic kidney disease; N18.9 Chronic kidney disease, unspecified; Z85.028 Personal history of other malignant neoplasm of stomach; Z87.442 Personal history of urinary calculi
CPT/HCPCS: 36415; 71045; 71260; 74177; 80048; 80053; 80305; 81001; 83880; 84484; 85025; 87081; 93306; 96361; 96372; 96374; 96375; 99285; G0378; J0360; J1644; J2270; J3490; J7030; Q9967

== ENCOUNTER 2020-04-28 05:30 | Emergency (ER) | payer MEDICAID ==
[~2020-04-28] VITALS: Ht 188 cm; Wt 100.0 kg
[~2020-04-28 05:30] MED LIST changes: -CLON-528 PO; +CLON0.2T PO; -DIAZ5TAB PO; -GABA-532 PO; -HYDR-4353 PO; -IBUP-2417 PO; -KETO10TA2 PO; -LISI-643 PO; -NAPR-1154 PO; +OMEP-50 PO; -OMEP40CA13 PO; -OXYB5TAB16 PO; -PHEN-824 PO; -TRAM50TA2 PO
[2020-04-28 05:38] VITALS: BP 127/93
[2020-04-28] MEDS ORDERED: ketorolac tromethamine 15mg/ml inj. IM ONE (06:25)
== END 2020-04-28 07:04 | disposition home or self-care (01) ==
LOC: ER 05:30
DX: M25.572 Pain in left ankle and joints of left foot (principal); I10 Essential (primary) hypertension; Z87.19 Personal history of other diseases of the digestive system; Z87.81 Personal history of (healed) traumatic fracture; G89.29 Other chronic pain; M54.9 Dorsalgia, unspecified; K21.9 Gastro-esophageal reflux disease without esophagitis; Z56.0 Unemployment, unspecified; Z79.899 Other long term (current) drug therapy
CPT/HCPCS: 96372; 99283; J1885

== ENCOUNTER 2021-02-12 18:02 | Emergency (ER) | payer MEDICAID ==
[~2021-02-12] VITALS: Ht 193 cm; Wt 100.0 kg
[~2021-02-12 18:02] MED LIST changes: +LISI10TA27 PO; -LISI10TA4 PO
[2021-02-12 18:11] VITALS: BP 140/93
[2021-02-12] MEDS ORDERED: HYDROcodone/acetaminophen 10/325mg tab PO ONE (23:10)
[2021-02-12] MEDS ORDERED: HYDR-3972 PO (23:18)
== END 2021-02-13 | disposition home or self-care (01) ==
LOC: ER 18:02
DX: S89.92XA Unspecified injury of left lower leg, initial encounter (principal); K21.9 Gastro-esophageal reflux disease without esophagitis; I10 Essential (primary) hypertension; G89.29 Other chronic pain; M54.9 Dorsalgia, unspecified; Z88.8 Allergy status to other drugs, medicaments and biological substances; X58.XXXA Exposure to other specified factors, initial encounter; Y93.89 Activity, other specified; Y92.89 Other specified places as the place of occurrence of the external cause; Y99.8 Other external cause status
CPT/HCPCS: 29505; 73564; 99283

== ENCOUNTER 2021-02-22 13:27 | Emergency (ER) | payer MEDICAID ==
[~2021-02-22] VITALS: Ht 188 cm; Wt 100.0 kg
[~2021-02-22 13:27] MED LIST changes: +HYDR-3972 PO
[2021-02-22 14:40] VITALS: BP 102/75
[2021-02-22] MEDS ORDERED: HYDROcodone/acetaminophen 10/325mg tab PO ONE (22:30)
[2021-02-22] MEDS ORDERED: naproxen 500mg tablet PO ONE (22:30)
[2021-02-22] MEDS ORDERED: NAPR-56 PO (22:34)
[2021-02-22] MEDS ORDERED: HYDR-3965 PO (22:34)
--- NOTE | 2021-02-22 22:49 | NUR ---
pt has had rt hand splinted by Dr Jeffrey Newman at bedside to check splint, +csm to rt hand
== END 2021-02-22 23:04 | disposition home or self-care (01) ==
LOC: ER 13:28
DX: S62.316A Displaced fracture of base of fifth metacarpal bone, right hand, initial encounter for closed fracture (principal); M25.531 Pain in right wrist; I10 Essential (primary) hypertension; K21.9 Gastro-esophageal reflux disease without esophagitis; G89.29 Other chronic pain; Z87.442 Personal history of urinary calculi; Z85.9 Personal history of malignant neoplasm, unspecified; Z98.890 Other specified postprocedural states; Z56.0 Unemployment, unspecified; Z79.899 Other long term (current) drug therapy; W22.8XXA Striking against or struck by other objects, initial encounter; Y93.01 Activity, walking, marching and hiking; Y92.89 Other specified places as the place of occurrence of the external cause; Y99.8 Other external cause status
CPT/HCPCS: 29125; 73110; 73130; 99284